=== PATIENT | male | born 1960 | race Caucasian/White ===

== ENCOUNTER 2020-12-11 11:27 | Day surgery (SDC) | payer BC, MEDICAID ==
[~2020-12-11] VITALS: Ht 137.2 cm; Wt 39.9 kg
[2020-12-11 12:36] VITALS: BP 160/97
[2020-12-11] MEDS ORDERED: OXYC5CAP2 PO (12:47)
[2020-12-11] MEDS ORDERED: AMLO-211 PO (12:47)
[2020-12-11] MEDS ORDERED: LACTATED RINGERS 1,000 ML IV SCH (13:00)
[2020-12-11] MEDS ORDERED: CHLORHEXIDINE 15 ML UDC PO ONE (13:00)
== END 2020-12-11 15:45 | disposition home or self-care (01) ==
LOC: OUT 11:27
PROVIDERS: ATTEND Surgery
DX: Z43.3 Encounter for attention to colostomy (principal); I10 Essential (primary) hypertension; Z88.0 Allergy status to penicillin; Z98.890 Other specified postprocedural states; Z87.891 Personal history of nicotine dependence; Z72.89 Other problems related to lifestyle; Z20.822 Contact with and (suspected) exposure to COVID-19; Z79.899 Other long term (current) drug therapy
CPT/HCPCS: 44388; 87635; 93005; J7120